=== PATIENT | female | born 1930 | race Caucasian/White ===

== ENCOUNTER 2016-06-14 11:07 | Outpatient (CLI) | payer MEDICARE, OTHER | END 2016-06-14 11:08 | disposition home or self-care (01) | DX: R06.09 Other forms of dyspnea (principal) ==

== ENCOUNTER 2016-06-14 13:08 | Outpatient (CLI) | payer MEDICARE, OTHER ==
[2016-06-14] MEDS ORDERED: ALBUTEROL NEB 2.5 MG/3 ML INH ONE (13:44)
== END 2016-06-14 13:09 | disposition home or self-care (01) ==
DX: R06.09 Other forms of dyspnea (principal)
CPT/HCPCS: 71020; 94060; 94729; J7613

== ENCOUNTER 2016-10-08 13:00 | Outpatient (CLI) | payer MEDICARE, OTHER ==
[2016-10-08 18:11] LABS: BASOPHILS % (AUTO) 0.8 %; CALCIUM 9.5 mg/dL (8.5-10.3); EOSINOPHILS # (AUTO) 0.1 10^3/uL (0.0-0.7); EOSINOPHILS % (AUTO) 1.5 %; HCT - HEMATOCRIT 40.4 % (37.0-47.0); HGB - HEMOGLOBIN 13.5 g/dL (12.0-16.0); LYMPHOCYTES % (AUTO) 32.8 %; MEAN CORPUSCULAR HEMOGLOBIN 33.2 pg (27.0-31.0); MEAN CORPUSCULAR HGB CONC 33.3 g/dL (32.0-36.0); MEAN CORPUSCULAR VOLUME 99.7 fL (81.0-99.0); MEAN PLATELET VOLUME 8.8 fL (7.9-10.8); MONOCYTES # (AUTO) 0.5 10^3/uL (0.0-1.0); MONOCYTES % (AUTO) 7.7 %; NEUTROPHILS # (AUTO) 3.5 10^3/uL (1.5-6.6); NEUTROPHILS % (AUTO) 57.2 %; NUCLEATED RED BLOOD CELLS AUTO 0.1 /100WBC; POTASSIUM 3.6 mmol/L (3.5-5.0); RED BLOOD COUNT 4.05 10^6/uL (4.20-5.40); RED CELL DISTRIBUTION WIDTH 15.7 % (12.0-15.0); UNCORRECTED WHITE BLOOD COUNT 6.1 x10^3/uL; WHITE BLOOD COUNT 6.1 x10^3/uL (4.8-10.8)
== END 2016-10-08 13:01 | disposition home or self-care (01) ==
LOC: LAB.F 13:00
PROVIDERS: ATTEND Physician Assistant Medical
DX: I48.91 Unspecified atrial fibrillation (principal); I50.9 Heart failure, unspecified
CPT/HCPCS: 36415; 80048; 83880; 85025

== ENCOUNTER 2017-01-12 15:34 | Outpatient (CLI) | payer MEDICARE, OTHER ==
[2017-01-12 17:59] LABS: BASOPHILS % (AUTO) 0.4 %; EOSINOPHILS # (AUTO) 0.1 10^3/uL (0.0-0.7); EOSINOPHILS % (AUTO) 1.2 %; HCT - HEMATOCRIT 37.8 % (37.0-47.0); HGB - HEMOGLOBIN 12.6 g/dL (12.0-16.0); LYMPHOCYTES # (AUTO) 1.4 10^3/uL (1.5-3.5); LYMPHOCYTES % (AUTO) 18.3 %; MEAN CORPUSCULAR HEMOGLOBIN 34.5 pg (27.0-31.0); MEAN CORPUSCULAR HGB CONC 33.4 g/dL (32.0-36.0); MEAN CORPUSCULAR VOLUME 103.2 fL (81.0-99.0); MEAN PLATELET VOLUME 8.4 fL (7.9-10.8); MONOCYTES # (AUTO) 1.1 10^3/uL (0.0-1.0); MONOCYTES % (AUTO) 13.8 %; NEUTROPHILS % (AUTO) 66.3 %; NUCLEATED RED BLOOD CELLS AUTO 0.1 /100WBC; RED BLOOD COUNT 3.66 10^6/uL (4.20-5.40); RED CELL DISTRIBUTION WIDTH 15.5 % (12.0-15.0); UNCORRECTED WHITE BLOOD COUNT 7.6 x10^3/uL; WHITE BLOOD COUNT 7.6 x10^3/uL (4.8-10.8)
[2017-01-12 18:45] LABS: ALBUMIN/GLOBULIN RATIO 1.2 (1.0-2.2); BILIRUBIN,TOTAL 3.1 mg/dL (0.2-1.0); CALCIUM 8.4 mg/dL (8.5-10.3); CREATININE 0.9 mg/dL (0.4-1.0); POTASSIUM 3.2 mmol/L (3.5-5.0); TOTAL PROTEIN 6.8 g/dL (6.7-8.2)
== END 2017-01-12 15:35 | disposition home or self-care (01) ==
LOC: LAB.F 15:34
PROVIDERS: ATTEND Physician Assistant Medical
DX: I10 Essential (primary) hypertension (principal); I50.9 Heart failure, unspecified; L03.011 Cellulitis of right finger
CPT/HCPCS: 36415; 80053; 83880; 85025

== ENCOUNTER 2017-01-17 13:09 | Outpatient (CLI) | payer MEDICARE, OTHER ==
--- NOTE | 2017-01-17 15:43 | XRAY Report ---
RIGHT INDEX FINGER, THREE VIEWS: 01/17/2017 HISTORY: Pain and swelling. Three views of the right index finger are interpreted without comparisons. FINDINGS: There is advanced irregularity of the index DIP joint with loss/ erosion of the normal cortical margins, narrowing/obliteration of the joint space, cystic erosions, and spurring with associated soft tissue swelling. There is mild degenerative change of the PIP joint with joint space narrowing, spurring, preserved cortical margins and associated soft tissue calcification. No definite periosteal reaction or fracture is seen. IMPRESSION: ADVANCED RIGHT INDEX FINGER DIP JOINT DEFORMITY/DESTRUCTION WITH DIFFERENTIAL INCLUDING EROSIVE OSTEOARTHRITIS, GOUT, INFECTION/SEPTIC JOINT, METABOLIC DISORDERS, OR A COMBINATION THEREOF. PIP JOINT OSTEOARTHRITIC DEGENERATIVE CHANGE. 15:9:58 JOB #: [id number] EXT JOB #: [id number] SHADI
== END 2017-01-17 13:10 | disposition home or self-care (01) ==
LOC: DI 13:09
PROVIDERS: ATTEND Physician Assistant Medical
DX: M24.841 Other specific joint derangements of right hand, not elsewhere classified (principal); M19.041 Primary osteoarthritis, right hand; I10 Essential (primary) hypertension
CPT/HCPCS: 36415; 73140; 80053

== ENCOUNTER 2017-01-17 13:27 | Outpatient (CLI) | payer MEDICARE, OTHER ==
[2017-01-17 14:25] LABS: BILIRUBIN,TOTAL 2.7 mg/dL (0.2-1.0); CALCIUM 9.1 mg/dL (8.5-10.3); CREATININE 0.9 mg/dL (0.4-1.0); POTASSIUM 4.1 mmol/L (3.5-5.0); TOTAL PROTEIN 7.4 g/dL (6.7-8.2)
== END 2017-01-17 13:28 | disposition home or self-care (01) ==
LOC: LAB 13:27
PROVIDERS: ATTEND Physician Assistant Medical
DX: I10 Essential (primary) hypertension (principal)
CPT/HCPCS: 36415; 80053

== ENCOUNTER 2017-01-25 11:20 | Outpatient (CLI) | payer MEDICARE, OTHER ==
[2017-01-25] MEDS ORDERED: GADOPENTETATE DIMEGLUMINE 5 ML VIAL IVP ONE (12:17)
[2017-01-25] MEDS ORDERED: GADOBUTROL 7.5 MMOL/7.5 ML VIAL ONE (12:21)
[2017-01-25] MEDS ORDERED: GADOBUTROL 7.5 MMOL/7.5 ML VIAL IVP ONE (12:39)
--- NOTE | 2017-01-25 15:57 | MRI Report ---
EXAM: RIGHT HAND SECOND DIGIT MRI WITHOUT AND WITH CONTRAST EXAM DATE: 01/25/2017 12:53 PM. CLINICAL HISTORY: Cellulitis of right finger. Swollen painful second finger. COMPARISON: Plain x-ray from 01/17/2017. TECHNIQUE: Multiplanar, multisequence T1-weighted and fluid-sensitive sequences of the finger before and after administration of intravenous contrast. IV contrast: 7.5 mL Gadavist given IV, no reaction. Other: None. FINDINGS: Bones: Abnormal low signal on T1, high signal on T2 and intense enhancement is seen in both sides of the second DIP joint. There is a small amount of increased T2 signal with minimal enhancement located at the fifth DIP join t, in a similar configuration. Cartilage: Cartilage of the second DIP joint is absent. Marginal osteophytes also seen. Cartilage and other joints in the [id number] appear age-appropriate. Ligaments: There is some broadening of the radial and ulnar collateral ligaments of the second DIP obdulia int. Other collaterals appear unremarkable. Tendons: The flexor and extensor tendons are unremarkable. The visualized pulleys are intact. Musculature: No edema or fatty atrophy. Other: No joint effusions or capsular rupture. The subcutaneous tissues are unremarkable. No abscess or cellulitis. IMPRESSION: 1. There is abnormal marrow edema with enhancement on both sides of the second DIP joint. Review of t he plain x-ray from 01/17 shows some erosive arthritic changes as well. 2. Similar but less severe changes are seen at the fifth DIP joint. 3. 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 The pattern of asymmetric erosive osteoarthritis is unusual however. If there h as been a history of injury or puncture to the index finger, septic arthritis and septic joint should be considered strongly. [facility] MUSCULOSKELETAL RADIOLOGY SECTION Referring Provider Line: [phone] SITE ID: [id number]
== END 2017-01-25 11:21 | disposition home or self-care (01) ==
LOC: DI 11:20
PROVIDERS: ATTEND Physician Assistant Medical
DX: L03.011 Cellulitis of right finger (principal)
CPT/HCPCS: 73220; A9585

== ENCOUNTER 2017-02-01 15:03 | Outpatient (CLI) | payer MEDICARE, OTHER ==
[2017-02-01 15:20] LABS: BASOPHILS # (AUTO) 0.2 10^3/uL (0.0-0.1); EOSINOPHILS # (AUTO) 0.1 10^3/uL (0.0-0.7); EOSINOPHILS % (AUTO) 1.6 %; HCT - HEMATOCRIT 38.9 % (37.0-47.0); LYMPHOCYTES # (AUTO) 1.7 10^3/uL (1.5-3.5); LYMPHOCYTES % (AUTO) 23.5 %; MEAN CORPUSCULAR HEMOGLOBIN 34.4 pg (27.0-31.0); MEAN CORPUSCULAR HGB CONC 33.4 g/dL (32.0-36.0); MEAN CORPUSCULAR VOLUME 103.1 fL (81.0-99.0); MONOCYTES % (AUTO) 12.8 %; NEUTROPHILS # (AUTO) 4.5 10^3/uL (1.5-6.6); NEUTROPHILS % (AUTO) 60.1 %; NUCLEATED RED BLOOD CELLS AUTO 0.1 /100WBC; RED BLOOD COUNT 3.77 10^6/uL (4.20-5.40); RED CELL DISTRIBUTION WIDTH 15.8 % (12.0-15.0); UNCORRECTED WHITE BLOOD COUNT 7.5 x10^3/uL; WHITE BLOOD COUNT 7.5 x10^3/uL (4.8-10.8)
== END 2017-02-01 15:04 | disposition home or self-care (01) ==
LOC: LAB 15:03
PROVIDERS: ATTEND Orthopaedic Surgery
DX: L03.011 Cellulitis of right finger (principal)
CPT/HCPCS: 36415; 85025; 85651; 86140

== ENCOUNTER 2017-02-02 14:48 | Outpatient (CLI) | payer MEDICARE, OTHER | END 2017-02-02 14:49 | disposition home or self-care (01) | LOC: LAB 14:48 | PROVIDERS: ATTEND Registered Nurse | DX: M00.9 Pyogenic arthritis, unspecified (principal); Z79.899 Other long term (current) drug therapy | CPT/HCPCS: 87640; 93005 ==

== ENCOUNTER 2017-02-03 06:54 | Day surgery (SDC) | payer MEDICARE, OTHER ==
[~2017-02-03 06:54] MED LIST: ceFAZolin 2 GM/50 ML 2 GM/50 ML BAG IV ONE
[2017-02-03] MEDS ORDERED: LACTATED RINGERS 1,000 ML IV ONE (06:57)
[2017-02-03] MEDS ORDERED: BUPIVACAINE 0.5% PF 30 ML VIAL INFIL ONE (08:40)
[2017-02-03] MEDS ORDERED: ACETAMINOPHEN 1,000 MG/100 ML 100 ML IV ONE (09:36)
--- NOTE | 2017-02-03 09:56 | OPERATIVE REPORT ---
DATE OF SURGERY: 02/03/2017 00:00:00 PREOPERATIVE DIAGNOSIS: Right index finger cyst at the distal interphalangeal joint level. POSTOPERATIVE DIAGNOSES 1. Right index finger cyst at the distal interphalangeal joint level. 2. Gouty tophus. PROCEDURE: Incision and drainage of the right index finger. SURGEON: Mekhi Stephenson MD. ASSISTANTS: None. ANESTHESIA: Monitored anesthesia care, supplemented by 0.5% Marcaine without epinephrine as a local i nfiltration for a right index finger block. FINDINGS: Gouty tophus, right index finger. COMPLICATIONS: None. BLOOD LOSS: 5 mL. TOURNIQUET: Not used. SPECIMEN REMOVED AND CULTURES: Cheesy material from the right index finger DIPJ sent for cultures, al caty with swabs from the DIPJ. CONDITION AT END OF PROCEDURE: Stable. DISPOSITION: PACU, then home. INDICATIONS: This is an 86-year-old female with a several day history of increasing redness and swell ing around the distal interphalangeal joint and digits of the right index finger. She was seen in [facility] and noted to have a very, very bright red and swollen finger with a pointing cystic structure at the dorsal radial aspect of the DIPJ of the index finger. Although she had not been having any consti tutional symptoms, we were concerned that she might potentially have an infection. We sent her for la bs, which did not show an increased white blood cell count or a left shift, nor did it show a signifi cantly increased sedimentation rate, but a very slightly elevated CRP at 1.1. We decided to proceed with an I and D of the right index finger after discussion with the patient. PROCEDURE IN DETAIL: After consent and identification, the patient was brought to the operating room in the supine position on the operating litter. After induction of MAC sedation and anesthesia, the r ight arm was outstretched on a Yousif stand and prepped and draped free in the usual sterile fashion fo r upper extremity surgery. After an appropriate timeout was conducted, we pronated the forearm to expose the dorsal aspect of th e right index finger. We made a longitudinal incision over the dorsal radial aspect centered over the DIPJ extending for 1 cm. Skin and subcutaneous tissue was divided and immediately encountered a cystic mass, which was pen etrated revealing some cheesy tophus appearing material. A very small rongeur was used to debride thi s gouty tophaceous material down to the level of the joint and the bone with a rongeur and a #15 blad e scalpel. A small amount of bony tissue was also taken. The cheesy material and a small amount of soft tissue were sent for cultures. We initially swabbed th e wound, sent that material for cultures as well. We then administered 2 grams of cefazolin IV. We thoroughly irrigated the wound with a liter of steri le saline. We again inspected the wound and noted no further material that needed to be debrided. The wound was closed with a running interlocked 4-0 nylon suture. The wound was dressed with Xeroform ga uze and folded 4 x 4 followed by tube gauze. Prior to that, we injected in a digital block fashion 5 mL of 0.5% Marcaine without epinephrine at the level of the metacarpophalangeal joint of the index fi nger. On completion of the procedure, the patient was transferred to the recovery room in good condition wu sheila tolerated the procedure well. JOB #: [id number] EXT JOB #:[id number]
[2017-02-03 10:35] VITALS: BP 112/62
[2017-02-03] MEDS ORDERED: fentaNYL 100 MCG/2 ML VIAL IVP ONE (11:00)
[2017-02-03] MEDS ORDERED: MIDAZOLAM 2 MG/2 ML VIAL IVP ONE (11:01)
[2017-02-03] MEDS ORDERED: ePHEDrine 50 MG/ML VIAL IVP ONE (11:02)
[2017-02-03] MEDS ORDERED: LIDOCAINE-MPF 2% 5 ML VIAL IM ONE (11:02)
[2017-02-03] MEDS ORDERED: PROPOFOL 200 MG/20 ML VIAL IVP ONE (11:02)
== END 2017-02-03 06:55 | disposition home or self-care (01) ==
LOC: SDS 06:54
PROVIDERS: ATTEND Orthopaedic Surgery
PROC: 0PBT0ZZ Excision of Right Finger Phalanx, Open Approach (ICD-10-PCS; principal; 2017-02-03 08:00)
DX: M1A.9XX1 Chronic gout, unspecified, with tophus (tophi) (principal); I50.9 Heart failure, unspecified; I10 Essential (primary) hypertension; I48.91 Unspecified atrial fibrillation; Z87.891 Personal history of nicotine dependence
CPT/HCPCS: 26236; 87070; 87205; J0131; J0690; J7120

== ENCOUNTER 2017-04-06 12:35 | Outpatient (CLI) | payer MEDICARE, OTHER ==
[2017-04-06 17:55] LABS: HCT - HEMATOCRIT 38.8 % (37.0-47.0); HGB - HEMOGLOBIN 12.5 g/dL (12.0-16.0); MEAN CORPUSCULAR HEMOGLOBIN 33.3 pg (27.0-31.0); MEAN CORPUSCULAR HGB CONC 32.3 g/dL (32.0-36.0); MEAN CORPUSCULAR VOLUME 103.3 fL (81.0-99.0); MEAN PLATELET VOLUME 9.2 fL (7.9-10.8); RED BLOOD COUNT 3.76 10^6/uL (4.20-5.40); RED CELL DISTRIBUTION WIDTH 16.2 % (12.0-15.0); WHITE BLOOD COUNT 5.8 x10^3/uL (4.8-10.8)
[2017-04-06 17:58] LABS: CALCIUM 8.8 mg/dL (8.5-10.3); POTASSIUM 3.9 mmol/L (3.5-5.0)
== END 2017-04-06 12:36 | disposition home or self-care (01) ==
LOC: LAB.F 12:35
PROVIDERS: ATTEND Family Medicine
DX: I50.9 Heart failure, unspecified (principal); I10 Essential (primary) hypertension; J44.9 Chronic obstructive pulmonary disease, unspecified
CPT/HCPCS: 36415; 80048; 83880

== ENCOUNTER 2017-05-10 11:10 | Outpatient (CLI) | payer MEDICARE, OTHER ==
[2017-05-10 19:46] LABS: HGB - HEMOGLOBIN 12.8 g/dL (12.0-16.0); MEAN CORPUSCULAR HEMOGLOBIN 33.7 pg (27.0-31.0); MEAN CORPUSCULAR HGB CONC 32.2 g/dL (32.0-36.0); MEAN CORPUSCULAR VOLUME 104.6 fL (81.0-99.0); MEAN PLATELET VOLUME 9.3 fL (7.9-10.8); RED BLOOD COUNT 3.79 10^6/uL (4.20-5.40); WHITE BLOOD COUNT 5.4 x10^3/uL (4.8-10.8)
[2017-05-10 20:01] LABS: CALCIUM 8.7 mg/dL (8.5-10.3); CREATININE 1.2 mg/dL (0.4-1.0)
== END 2017-05-10 11:11 | disposition home or self-care (01) ==
LOC: LAB.F 11:10
PROVIDERS: ATTEND Family Medicine
DX: R60.9 Edema, unspecified (principal); I50.9 Heart failure, unspecified; J44.9 Chronic obstructive pulmonary disease, unspecified
CPT/HCPCS: 36415; 80048; 83880; 85025

== ENCOUNTER 2017-05-24 11:15 | Outpatient (CLI) | payer MEDICARE, OTHER ==
[2017-05-24 17:30] LABS: BASOPHILS % (AUTO) 0.5 %; EOSINOPHILS # (AUTO) 0.1 10^3/uL (0.0-0.7); EOSINOPHILS % (AUTO) 1.9 %; HGB - HEMOGLOBIN 12.8 g/dL (12.0-16.0); LYMPHOCYTES # (AUTO) 1.2 10^3/uL (1.5-3.5); LYMPHOCYTES % (AUTO) 20.1 %; MEAN CORPUSCULAR HEMOGLOBIN 33.1 pg (27.0-31.0); MEAN CORPUSCULAR VOLUME 103.6 fL (81.0-99.0); MEAN PLATELET VOLUME 8.7 fL (7.9-10.8); MONOCYTES # (AUTO) 0.8 10^3/uL (0.0-1.0); MONOCYTES % (AUTO) 13.8 %; NEUTROPHILS # (AUTO) 3.8 10^3/uL (1.5-6.6); NEUTROPHILS % (AUTO) 63.7 %; PLT - PLATELET COUNT 157 10^3/uL (130-450); RED BLOOD COUNT 3.85 10^6/uL (4.20-5.40); RED CELL DISTRIBUTION WIDTH 17.7 % (12.0-15.0); WHITE BLOOD COUNT 5.9 x10^3/uL (4.8-10.8)
[2017-05-24 18:38] LABS: CALCIUM 8.8 mg/dL (8.5-10.3); CREATININE 1.8 mg/dL (0.4-1.0)
== END 2017-05-24 11:16 | disposition home or self-care (01) ==
LOC: LAB.F 11:15
PROVIDERS: ATTEND Nurse Practitioner Family
DX: J44.9 Chronic obstructive pulmonary disease, unspecified (principal); I50.9 Heart failure, unspecified; R60.9 Edema, unspecified; N18.9 Chronic kidney disease, unspecified
CPT/HCPCS: 36415; 80048; 83880; 85025

== ENCOUNTER 2017-05-31 11:19 | Outpatient (CLI) | payer MEDICARE, OTHER ==
[2017-05-31 18:05] LABS: CALCIUM 8.9 mg/dL (8.5-10.3); CREATININE 1.5 mg/dL (0.4-1.0)
== END 2017-05-31 11:20 | disposition home or self-care (01) ==
LOC: LAB.F 11:19
PROVIDERS: ATTEND Nurse Practitioner Family
DX: N18.9 Chronic kidney disease, unspecified (principal); I50.9 Heart failure, unspecified
CPT/HCPCS: 36415; 80048; 83880

== ENCOUNTER 2017-06-13 10:49 | Outpatient (CLI) | payer MEDICARE, OTHER ==
[2017-06-13 18:20] LABS: CALCIUM 8.9 mg/dL (8.5-10.3); CREATININE 1.9 mg/dL (0.4-1.0)
== END 2017-06-13 10:50 | disposition home or self-care (01) ==
LOC: LAB.F 10:49
PROVIDERS: ATTEND Nurse Practitioner Family
DX: I50.9 Heart failure, unspecified (principal); R60.9 Edema, unspecified
CPT/HCPCS: 36415; 80048; 83880

== ENCOUNTER 2017-06-20 11:05 | Outpatient (CLI) | payer MEDICARE, OTHER ==
[2017-06-20 18:49] LABS: CREATININE 1.6 mg/dL (0.4-1.0)
== END 2017-06-20 11:06 | disposition home or self-care (01) ==
LOC: LAB.F 11:05
PROVIDERS: ATTEND Family Medicine
DX: I50.9 Heart failure, unspecified (principal); N18.9 Chronic kidney disease, unspecified
CPT/HCPCS: 36415; 80048; 83880

== ENCOUNTER 2017-08-03 11:28 | Outpatient (CLI) | payer MEDICARE, OTHER ==
[2017-08-03 18:04] LABS: CALCIUM 8.9 mg/dL (8.5-10.3); CREATININE 1.5 mg/dL (0.4-1.0)
== END 2017-08-03 11:29 | disposition home or self-care (01) ==
LOC: LAB.F 11:28
PROVIDERS: ATTEND Family Medicine
DX: I13.0 Hypertensive heart and chronic kidney disease with heart failure and stage 1 through stage 4 chronic kidney disease, or unspecified chronic kidney disease (principal); N18.9 Chronic kidney disease, unspecified; I50.9 Heart failure, unspecified
CPT/HCPCS: 36415; 80048

== ENCOUNTER 2017-12-28 11:15 | Outpatient (CLI) | payer MEDICARE, OTHER ==
[2017-12-28 17:16] LABS: HGB - HEMOGLOBIN 12.9 g/dL (12.0-16.0); MEAN CORPUSCULAR HEMOGLOBIN 35.2 pg (27.0-31.0); MEAN CORPUSCULAR HGB CONC 33.4 g/dL (32.0-36.0); MEAN CORPUSCULAR VOLUME 105.4 fL (81.0-99.0); MEAN PLATELET VOLUME 9.3 fL (7.9-10.8); RED BLOOD COUNT 3.66 10^6/uL (4.20-5.40); RED CELL DISTRIBUTION WIDTH 16.1 % (12.0-15.0); WHITE BLOOD COUNT 4.1 x10^3/uL (4.8-10.8)
[2017-12-28 17:33] LABS: ALBUMIN 3.7 g/dL (3.2-5.5); ALBUMIN/GLOBULIN RATIO 1.1 (1.0-2.2); BILIRUBIN,TOTAL 3.3 mg/dL (0.2-1.0); CALCIUM 9.1 mg/dL (8.5-10.3); CREATININE 1.7 mg/dL (0.4-1.0)
== END 2017-12-28 11:16 | disposition home or self-care (01) ==
LOC: LAB.F 11:15
PROVIDERS: ATTEND Internal Medicine
DX: I50.9 Heart failure, unspecified (principal)
CPT/HCPCS: 36415; 80053; 85027

== ENCOUNTER 2018-07-05 23:04 | Outpatient (CLI) | payer MEDICARE, OTHER | END 2018-07-05 23:05 | disposition short-term general hospital (02) | LOC: EMS 23:04 | PROVIDERS: ATTEND Surgery | DX: R19.7 Diarrhea, unspecified (principal); R19.5 Other fecal abnormalities | CPT/HCPCS: A0425; A0427 ==